=== PATIENT | female | born 1985 | race Caucasian/White ===

== ENCOUNTER 2023-11-13 14:41 | Emergency (ER) | payer OTHER ==
[2023-11-13 14:50] VITALS: BP 122/77; PULSE 92; RESP 18; TEMP 98.3; BMI 19.3
[2023-11-13 15:38] LABS: BASO % 0.6 % (0-2.0); EOS % 1.8 % (0-4.5); HEMOGLOBIN 14.4 GM/dL (10.7-15.3); LYMPH % 26.9 % (8-40); MCH 31.5 pg (25.7-33.7); MEAN CELL VOLUME 89.9 fl (80-96); MEAN PLT VOLUME 7.9 fl (7.5-11.1); MONO % 10.5 % (3.8-10.2); NEUT % 60.2 % (42.8-82.8); PLATELET COUNT 284 10^3/uL (134-434); RBC 4.56 M/mm3 (3.60-5.2); RDW 12.9 % (11.6-15.6); WHITE BLOOD COUNT 5.5 K/mm3 (4.0-10.0)
[2023-11-13 15:56] LABS: POTASSIUM 3.7 mmol/L (3.5-5.1)
[2023-11-13 15:58] LABS: CALCIUM 8.8 mg/dL (8.5-10.1)
[2023-11-13 15:59] LABS: ALBUMIN 3.6 g/dl (3.4-5.0); BLOOD UREA NITROGEN 11.7 mg/dL (7-18)
[2023-11-13 16:02] LABS: CREATININE 0.9 mg/dL (0.55-1.3)
[2023-11-13 16:03] LABS: BILIRUBIN,TOTAL 0.4 mg/dL (0.2-1); TOT PROT 7.3 g/dl (6.4-8.2)
== END 2023-11-13 16:59 | disposition home or self-care (01) ==
LOC: JER 14:41
DX: R00.2 Palpitations (principal); R20.2 Paresthesia of skin; R07.89 Other chest pain; R53.83 Other fatigue
CPT/HCPCS: 36415; 71046-TC-FY; 80053; 84484; 85025; 93005; 93010; 99285-25